=== PATIENT | male | born 1990 | race Caucasian/White ===

== ENCOUNTER 2023-03-30 18:29 | Inpatient (IN) | payer OTHER ==
[2023-03-30 19:00] VITALS: BMI 24.7
[2023-03-30] MEDS ORDERED: BENZOCAINE/MENTHOL (CHLORASEPTIC ) LOZENGE MM PRN (19:57)
[2023-03-30] MEDS ORDERED: P-EPHED 60MG/TRIPROLIDI 2.5MG TABLET PO PRN (19:57)
[2023-03-30] MEDS ORDERED: ACETAMINOPHEN 325 MG TABLET (FP) PO PRN (19:57)
[2023-03-30] MEDS ORDERED: NALOXONE HCL 0.4 MG/ML VIAL IM PRN (19:57)
[2023-03-30] MEDS ORDERED: LOPERAMIDE HCL 2 MG CAPSULE PO PRN (19:57)
[2023-03-30] MEDS ORDERED: BISMUTH SUBSALICYLATE 524 MG/30 ML PO PRN (19:57)
[2023-03-30] MEDS ORDERED: POLYETHYLENE GLYCOL (HEALTHYLAX) 3350 17 GM PACKET PO PRN (19:57)
[2023-03-30] MEDS ORDERED: BENZONATATE 200 MG CAPSULE PO PRN (19:57)
[2023-03-30] MEDS ORDERED: DICYCLOMINE HCL 10 MG CAPSULE PO PRN (19:57)
[2023-03-30] MEDS ORDERED: NICOTINE POLACRILEX 2 MG GUM BUC PRN (19:57)
[2023-03-30] MEDS ORDERED: guaiFENesin 600 MG TABLET.ER (FP) PO PRN (19:57)
[2023-03-30] MEDS ORDERED: ONDANSETRON *ODT* 4 MG TABLET SL PRN (19:57)
[2023-03-30] MEDS ORDERED: NALOXONE HCL (KLOXXADO) 8 MG SPRAY NS PRN (19:57)
[2023-03-30] MEDS ORDERED: MAGNESIUM HYDROX 2400MG/30ML ORAL SUSPENSION 30 ML CUP PO PRN (19:57)
[2023-03-30] MEDS ORDERED: MAG HYDROX/AL HYDROX/SIMETH 30 ML UNIT-DOSE CUP PO PRN (19:57)
[2023-03-30] MEDS ORDERED: IBUPROFEN 600 MG TABLET (FP) PO PRN (19:57)
[2023-03-30] MEDS ORDERED: IBUPROFEN 400 MG TABLET (FP) PO PRN (19:57)
[2023-03-30] MEDS: METHOCARBAMOL 500 MG TABLET PO PRN (20:44)
[2023-03-30] MEDS: hydrOXYzine PAMOATE 25 MG CAPSULE (FP) PO PRN (20:44)
[2023-03-30] MEDS: THIAMINE HCL 100 MG TABLET (FP) PO SCH (22:38)
[2023-03-30] MEDS: MELATONIN 5 MG TABLETS PO SCH (22:38)
[2023-03-31 09:15] LABS: CHLORIDE 108 mmol/L (98-107); POTASSIUM 4.3 mmol/L (3.5-5.1); SODIUM 141 mmol/L (136-145)
[2023-03-31 09:19] LABS: BLOOD UREA NITROGEN 8.6 mg/dL (7-18); GLUCOSE,RANDOM 72 mg/dL (74-106)
[2023-03-31 09:20] LABS: CALCIUM 8.3 mg/dL (8.5-10.1)
[2023-03-31 09:21] LABS: ALBUMIN 3.2 g/dl (3.4-5.0); ANION GAP 5 mmol/L (4-13); CO2 28 mmol/L (21-32); HEMATOCRIT 33.1 % (35.4-49); HEMOGLOBIN 11.6 GM/dL (11.7-16.9); MCH 28.8 pg (25.7-33.7); MCHC 35.1 g/dl (32.0-35.9); MEAN CELL VOLUME 82.2 fl (80-96); MEAN PLT VOLUME 8.4 fl (7.5-11.1); PLATELET COUNT 424 10^3/uL (134-434); RBC 4.02 M/mm3 (4.00-5.60); RDW 14.4 % (11.9-15.9); WHITE BLOOD COUNT 7.9 K/mm3 (4.0-10.0)
[2023-03-31 09:22] LABS: SGPT/ALT 22 U/L (13-61)
[2023-03-31 09:23] LABS: CREATININE 0.6 mg/dL (0.55-1.3); SGOT/AST 20 U/L (15-37)
[2023-03-31 09:24] LABS: BILIRUBIN,TOTAL 0.7 mg/dL (0.2-1); TOT PROT 6.3 g/dl (6.4-8.2)
[2023-03-31 09:25] LABS: ALK PHOS 74 U/L (45-117)
[2023-03-31] MEDS: PRENATAL VITAMINS W/ FOLIC ACID TABLET (FP) PO SCH (10:59)
[2023-03-31] MEDS ORDERED: cloNIDine HCL 0.1 MG TABLET PO PRN (17:32)
[2023-03-31] MEDS ORDERED: methaDONE HCL 10 MG TABLET (FOR DETOX USE ONLY) PO ONE (17:32)
[2023-03-31] MEDS ORDERED: diazePAM 5 MG TABLET PO ONE (17:33)
[2023-03-31] MEDS ORDERED: diazePAM 5 MG TABLET PO PRN (17:33)
[2023-03-31] MEDS: METHOCARBAMOL 500 MG TABLET PO PRN (17:51)
[2023-03-31] MEDS: diazePAM 5 MG TABLET PO SCH (22:57)
[2023-03-31] MEDS: MELATONIN 5 MG TABLETS PO SCH (22:58)
[2023-03-31] MEDS: THIAMINE HCL 100 MG TABLET (FP) PO SCH (22:58)
[2023-04-01] MEDS: diazePAM 5 MG TABLET PO SCH ×4 (05:55→22:54)
[2023-04-01] MEDS: PRENATAL VITAMINS W/ FOLIC ACID TABLET (FP) PO SCH (10:16)
[2023-04-01] MEDS: METHOCARBAMOL 500 MG TABLET PO PRN (22:54)
[2023-04-01] MEDS: MELATONIN 5 MG TABLETS PO SCH (22:54)
[2023-04-01] MEDS: THIAMINE HCL 100 MG TABLET (FP) PO SCH (22:55)
[2023-04-02] MEDS: diazePAM 5 MG TABLET PO SCH ×3 (06:37→22:49)
[2023-04-02] MEDS ORDERED: methaDONE HCL 10 MG TABLET (FOR DETOX USE ONLY) PO ONE (10:00)
[2023-04-02] MEDS: PRENATAL VITAMINS W/ FOLIC ACID TABLET (FP) PO SCH (10:43)
[2023-04-02] MEDS: METHOCARBAMOL 500 MG TABLET PO PRN (10:44)
[2023-04-02] MEDS: THIAMINE HCL 100 MG TABLET (FP) PO SCH (22:48)
[2023-04-02] MEDS: MELATONIN 5 MG TABLETS PO SCH (22:50)
[2023-04-03] MEDS: diazePAM 5 MG TABLET PO SCH ×2 (06:03→17:20)
[2023-04-03] MEDS: hydrOXYzine PAMOATE 25 MG CAPSULE (FP) PO PRN (10:29)
[2023-04-03] MEDS: METHOCARBAMOL 500 MG TABLET PO PRN (10:29)
[2023-04-03] MEDS: PRENATAL VITAMINS W/ FOLIC ACID TABLET (FP) PO SCH (10:29)
[2023-04-03] MEDS: MELATONIN 5 MG TABLETS PO SCH (22:14)
[2023-04-03] MEDS: THIAMINE HCL 100 MG TABLET (FP) PO SCH (22:14)
[2023-04-04] MEDS ORDERED: diazePAM 5 MG TABLET PO ONE (06:00)
[2023-04-04] MEDS: PRENATAL VITAMINS W/ FOLIC ACID TABLET (FP) PO SCH (09:55)
[2023-04-04] MEDS: hydrOXYzine PAMOATE 25 MG CAPSULE (FP) PO PRN ×2 (09:55→22:04)
[2023-04-04] MEDS: METHOCARBAMOL 500 MG TABLET PO PRN ×2 (09:55→22:04)
[2023-04-04] MEDS ORDERED: methaDONE HCL 10 MG TABLET (FOR DETOX USE ONLY) PO ONE (10:00)
[2023-04-04] MEDS: MELATONIN 5 MG TABLETS PO SCH (22:04)
[2023-04-04] MEDS: THIAMINE HCL 100 MG TABLET (FP) PO SCH (22:04)
[2023-04-05 09:22] VITALS: BP 116/71; PULSE 74; RESP 16; TEMP 97.1
[2023-04-05] MEDS: PRENATAL VITAMINS W/ FOLIC ACID TABLET (FP) PO SCH (11:05)
== END 2023-04-05 10:25 | disposition home or self-care (01) | DRG 773 ==
LOC: YASAS 18:29 → Y6N 19:59
PROVIDERS: ADMIT Allergy & Immunology; ATTEND Surgery
PROC: HZ2ZZZZ Detoxification Services for Substance Abuse Treatment (ICD-10-PCS; principal; 2023-03-30)
DX: F11.23 Opioid dependence with withdrawal (principal); F10.230 Alcohol dependence with withdrawal, uncomplicated; F13.20 Sedative, hypnotic or anxiolytic dependence, uncomplicated; F14.20 Cocaine dependence, uncomplicated; F12.20 Cannabis dependence, uncomplicated; F17.210 Nicotine dependence, cigarettes, uncomplicated; F19.24 Other psychoactive substance dependence with psychoactive substance-induced mood disorder; U07.1 COVID-19; Z28.310 Unvaccinated for COVID-19; Z28.9 Immunization not carried out for unspecified reason
CPT/HCPCS: 36415; 80053; 80307; 85027; 86780; 87635; 87811